=== PATIENT | female | born 2000 | race Caucasian/White ===

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

== ENCOUNTER 2021-02-01 20:30 | Emergency (ER) | payer OTHER ==
[2021-02-01 20:38] VITALS: BP 131/59; PULSE 94; TEMP 97.8; BMI 40.3
[2021-02-01] MEDS ORDERED: FAMOTIDINE 20 MG/50 ML IVPB 20 MG in PREMIX 50 IVPB ONE (20:54)
[2021-02-01] MEDS ORDERED: MAG HYDROX/AL HYDROX/SIMETH -MYLANTA- ORAL SUSPENSION PO ONE (20:54)
[2021-02-01] MEDS ORDERED: SODIUM CHLORIDE 1,000 ML IV ONE (20:54)
[2021-02-01 21:08] LABS: HCG,QUALITATIVE URINE Negative
[2021-02-01] MEDS ORDERED: MAG HYDROX/AL HYDROX/SIMETH 30 ML UNIT-DOSE CUP ONE (21:08)
[2021-02-01] MEDS ORDERED: FAMOTIDINE 20 MG/50 ML IVPB 20 MG/50 ML MG IVPB ONE (21:08)
[2021-02-01 21:29] LABS: EPITHELIAL CELLS FEW /hpf
[2021-02-01 21:35] LABS: ALBUMIN 3.7 g/dl (3.4-5.0); BILIRUBIN,TOTAL 0.7 mg/dl (0.2-1); CALCIUM 8.9 mg/dl (8.5-10); CREATININE 0.8 mg/dl (0.55-1.3); TOT PROT 7.3 g/dl (6.4-8.2)
[2021-02-01 22:42] LABS: BASO % 0.5 % (0-2.0); HEMATOCRIT 38.2 % (32.4-45.2); HEMOGLOBIN 12.6 GM/dL (10.7-15.3); LYMPH % 28.2 % (8-40); MCH 25.8 pg (25.7-33.7); MCHC 33.1 g/dl (32.0-36.0); MEAN CELL VOLUME 78.1 fl (80-96); MEAN PLT VOLUME 7.3 fl (7.5-11.1); MONO % 5.9 % (3.8-10.2); NEUT % 64.4 % (42.8-82.8); PLATELET COUNT 352 10^3/uL (134-434); RBC 4.89 M/mm3 (3.60-5.2); RDW 16.1 % (11.6-15.6); WHITE BLOOD COUNT 9.9 K/mm3 (4.0-10.0)
== END 2021-02-01 23:28 | disposition home or self-care (01) ==
LOC: FER 20:30
PROC: 3E033NZ Introduction of Analgesics, Hypnotics, Sedatives into Peripheral Vein, Percutaneous Approach (ICD-10-PCS; principal; 2021-02-01)
PROC: 3E0337Z Introduction of Electrolytic and Water Balance Substance into Peripheral Vein, Percutaneous Approach (ICD-10-PCS; 2021-02-01)
DX: K29.00 Acute gastritis without bleeding (principal)
CPT/HCPCS: 36415; 80053; 81003; 81015; 83690; 84703; 85025; 99284-25

== ENCOUNTER 2021-02-27 20:36 | Emergency (ER) | payer OTHER ==
[2021-02-27 20:54] VITALS: BP 136/73; PULSE 78; TEMP 99; BMI 40.3
== END 2021-02-27 20:58 | disposition home or self-care (01) ==
LOC: FER 20:36
DX: J06.9 Acute upper respiratory infection, unspecified (principal)
CPT/HCPCS: 87804; 87807; 99283-25; C9803; U0003; U0005

== ENCOUNTER 2021-08-31 10:30 | Emergency (ER) | payer OTHER ==
[2021-08-31 10:50] VITALS: BP 125/83; PULSE 84; TEMP 99.2; BMI 39.5
[2021-08-31] MEDS ORDERED: SODIUM CHLORIDE 1,000 ML IV STA (10:54)
[2021-08-31] MEDS ORDERED: ACETAMINOPHEN 1000 MG/100 ML BAG IVPB ONE (10:54)
[2021-08-31] MEDS ORDERED: ACETAMINOPHEN INJECTION 100 ML IVPB ONE (11:17)
[2021-08-31 11:29] LABS: HEMATOCRIT 37.4 % (32.4-45.2); HEMOGLOBIN 12.6 G/dL (10.7-15.3); MCH 26.1 pg (25.7-33.7); MCHC 33.8 g/dl (32.0-36.0); MEAN CELL VOLUME 77.3 fl (80-96); MEAN PLT VOLUME 7.6 fl (7.5-11.1); PLATELET COUNT 363.5 10^3/uL (134-434); RBC 4.84 10^6/uL (3.60-5.2); RDW 16.6 % (11.6-15.6); WHITE BLOOD COUNT 10.6 10^3/uL (4.0-10.8)
[2021-08-31 11:30] LABS: HCG,QUALITATIVE URINE Negative
[2021-08-31 11:37] LABS: ALBUMIN 3.8 g/dl (3.4-5.0); BILIRUBIN,TOTAL 0.5 mg/dl (0.2-1); CALCIUM 9.5 mg/dl (8.5-10); CREATININE 0.7 mg/dl (0.55-1.3); TOT PROT 7.7 g/dl (6.4-8.2)
[2021-08-31 11:43] LABS: EPITHELIAL CELLS MODERATE /hpf
[2021-08-31] MEDS ORDERED: CEFTRIAXONE 1,000 MG in DEXTROSE 5%-WATER - 50 ML IVPB ONE (12:55)
[2021-08-31] MEDS ORDERED: cefTRIAXone SODIUM 1 GM VIAL ONE (13:13)
== END 2021-08-31 13:33 | disposition home or self-care (01) ==
LOC: FER 10:30
PROC: 3E03329 Introduction of Other Anti-infective into Peripheral Vein, Percutaneous Approach (ICD-10-PCS; principal; 2021-08-31)
PROC: 3E033NZ Introduction of Analgesics, Hypnotics, Sedatives into Peripheral Vein, Percutaneous Approach (ICD-10-PCS; 2021-08-31)
PROC: 3E0337Z Introduction of Electrolytic and Water Balance Substance into Peripheral Vein, Percutaneous Approach (ICD-10-PCS; 2021-08-31)
DX: N10 Acute pyelonephritis (principal)
CPT/HCPCS: 36415; 74176-TC; 80053; 81003; 81015; 84703; 85027; 87086; 87186; 99285-25

== ENCOUNTER 2022-06-04 14:05 | Emergency (ER) | payer OTHER ==
[2022-06-04 14:29] VITALS: BP 126/82; PULSE 84; RESP 16; TEMP 99; BMI 40.3
[2022-06-04] MEDS ORDERED: SULFAMETHOXAZOLE/TRIMETHOPRIM 800MG/160MG D.S. TABLET PO ONE (14:43)
[2022-06-04] MEDS ORDERED: IBUPROFEN 600 MG TABLET (FP) PO ONE ×2 (14:44→15:07)
[2022-06-04] MEDS ORDERED: SULFAMETHOXAZOLE/TRIMETHOPRIM 800MG/160MG D.S. TABLET ONE (15:08)
== END 2022-06-04 15:37 | disposition home or self-care (01) ==
LOC: FER 14:05
PROC: 0H9BXZZ Drainage of Right Upper Arm Skin, External Approach (ICD-10-PCS; principal; 2022-06-04)
DX: L02.411 Cutaneous abscess of right axilla (principal); L03.111 Cellulitis of right axilla
CPT/HCPCS: 99283-25

== ENCOUNTER 2022-11-11 17:11 | Emergency (ER) | payer OTHER ==
[2022-11-11 17:29] VITALS: BP 134/74; PULSE 88; RESP 16; TEMP 98.8; BMI 40.3
[2022-11-11] MEDS ORDERED: IBUPROFEN 400 MG TABLET (FP) PO ONE ×2 (18:03→18:06)
== END 2022-11-11 18:27 | disposition home or self-care (01) ==
LOC: FER 17:11
DX: S83.402A Sprain of unspecified collateral ligament of left knee, initial encounter (principal); X50.1XXA Overexertion from prolonged static or awkward postures, initial encounter; Y92.219 Unspecified school as the place of occurrence of the external cause
CPT/HCPCS: 73610-TC-LT-FY; 73630-TC-LT; 99283-25

== ENCOUNTER 2023-07-07 14:12 | Emergency (ER) | payer OTHER ==
[2023-07-07 14:34] VITALS: BP 149/94; PULSE 80; RESP 20; TEMP 97.8; BMI 41.3
[2023-07-07 14:48] LABS: HCG,QUALITATIVE URINE Negative
[2023-07-07] MEDS ORDERED: ACETAMINOPHEN 500 MG TABLET (FP) ONE (14:50)
[2023-07-07] MEDS ORDERED: ONDANSETRON *ODT* 4 MG TABLET ONE (14:51)
[2023-07-07] MEDS: ONDANSETRON *ODT* 4 MG TABLET SL ONE (14:53)
[2023-07-07] MEDS: ACETAMINOPHEN 500 MG TABLET (FP) PO ONE (14:53)
[2023-07-07 15:12] LABS: EPITHELIAL CELLS 0-5 /hpf
[2023-07-07 16:39] LABS: HEMATOCRIT 38.6 % (32.4-45.2); HEMOGLOBIN 12.6 G/dL (10.7-15.3); MCH 25.9 pg (25.7-33.7); MCHC 32.5 g/dl (32.0-36.0); MEAN CELL VOLUME 79.5 fl (80-96); MEAN PLT VOLUME 7.6 fl (7.5-11.1); PLATELET COUNT 322.9 10^3/uL (134-434); RBC 4.85 10^6/uL (3.60-5.2); RDW 16.4 % (11.6-15.6); WHITE BLOOD COUNT 9.9 10^3/uL (4.0-10.8)
[2023-07-07 16:49] LABS: PLATELET ESTIMATE ADEQUATE
== END 2023-07-07 17:29 | disposition home or self-care (01) ==
LOC: FER 14:12
DX: N83.201 Unspecified ovarian cyst, right side (principal); N83.202 Unspecified ovarian cyst, left side
CPT/HCPCS: 36415; 76830-TC; 81003; 81015; 84703; 85027; 87086; 99284-25; Q0162